=== PATIENT | female | born 2005 ===

== ENCOUNTER 2024-10-28 20:10 | Outpatient (REF) | payer BC, OTHER, SELFPAY ==
[2024-11-01 09:08] LABS: Age Gdln ACOG Testing Note (.); IGP, rfx Aptima HPV ASCU Note (.)
== END 2024-10-28 20:11 | disposition home or self-care (01) ==
LOC: LAB 20:10
PROVIDERS: Visit Provider Physician Assistant
DX: Z01.419 Encounter for gynecological examination (general) (routine) without abnormal findings (principal)
CPT/HCPCS: 88175